=== PATIENT | male | born 1950 | race Caucasian/White ===

== ENCOUNTER 2021-02-16 07:33 | Outpatient (CLI) | payer BC | END 2021-02-16 07:34 | disposition home or self-care (01) | LOC: LAB.N 07:33 | PROVIDERS: ATTEND Internal Medicine | DX: Z53.9 Procedure and treatment not carried out, unspecified reason (principal) ==

== ENCOUNTER 2021-03-22 03:00 | Outpatient (CLI) | payer BC ==
[2021-03-22 18:04] LABS: BILIRUBIN,URINE NEGATIVE (NEGATIVE); GLUCOSE, URINE (UA) NEGATIVE (NEGATIVE); KETONES,URINE (UA) TRACE mg/dL (NEGATIVE); LEUKOCYTE ESTERASE, URINE NEGATIVE (NEGATIVE); NITRITE,URINE NEGATIVE (NEGATIVE); OCCULT BLOOD,URINE NEGATIVE (NEGATIVE); PROTEIN,URINE NEGATIVE (NEGATIVE); UROBILINOGEN,URINE 0.2 (NORMAL) E.U./dL (NORMAL)
[2021-03-22 19:19] LABS: BACTERIA,URINE None Seen /HPF (None Seen); CLARITY,URINE CLEAR (CLEAR); MUCUS,URINE Moderate Strands; RBC,URINE None Seen /HPF (0-5); SQUAMOUS EPITHELIAL CELL,UR RARE Squamous (<= Few); WBC,URINE 0-3 /HPF (0-3)
[2021-03-25 08:56] LABS: IMMUNOGLOBULIN A 312 mg/dL (70-320); IMMUNOGLOBULIN G 964 mg/dL (600-1540); IMMUNOGLOBULIN M 221 mg/dL (50-300)
[2021-03-25 13:41] LABS: PATHOLOGIST SLIDE COMMENTS SEE SEPARATE REPORT
[2021-03-25 15:31] LABS: ALBUMIN 4.5 g/dL (3.8-4.8); ALPHA 1 GLOBULIN 0.3 g/dL (0.2-0.3); ALPHA 2 GLOBULIN 0.7 g/dL (0.5-0.9); BETA 1 GLOBULIN 0.5 g/dL (0.4-0.6); BETA 2 GLOBULIN 0.3 g/dL (0.2-0.5)
== END 2021-03-22 03:01 | disposition home or self-care (01) ==
LOC: LAB.N 03:00
PROVIDERS: ATTEND Internal Medicine
DX: D75.1 Secondary polycythemia (principal); E88.09 Other disorders of plasma-protein metabolism, not elsewhere classified
CPT/HCPCS: 36415; 81001; 81599; 82668; 82784; 84155; 84165; 85025; 86335; 87086

== ENCOUNTER 2021-06-12 14:37 | Outpatient (CLI) | payer BC ==
[2021-06-12 17:36] LABS: BASOPHILS % (AUTO) 0.4 %; EOSINOPHILS # (AUTO) 0.2 10^3/uL (0.0-0.7); EOSINOPHILS % (AUTO) 1.4 %; HCT - HEMATOCRIT 48.9 % (42.0-52.0); HGB - HEMOGLOBIN 16.2 g/dL (14.0-18.0); LYMPHOCYTES # (AUTO) 3.4 10^3/uL (1.5-3.5); LYMPHOCYTES % (AUTO) 31.1 %; MEAN CORPUSCULAR HEMOGLOBIN 30.6 pg (27.0-31.0); MEAN CORPUSCULAR HGB CONC 33.1 g/dL (32.0-36.0); MEAN CORPUSCULAR VOLUME 92.3 fL (80.0-94.0); MEAN PLATELET VOLUME 10.9 fL (7.4-11.4); MONOCYTES # (AUTO) 0.7 10^3/uL (0.0-1.0); MONOCYTES % (AUTO) 6.8 %; NEUTROPHILS # (AUTO) 6.5 10^3/uL (1.5-6.6); NEUTROPHILS % (AUTO) 59.9 %; PLT - PLATELET COUNT 225 10^3/uL (130-450); RED CELL DISTRIBUTION WIDTH 12.3 % (12.0-15.0); WHITE BLOOD COUNT 10.9 x10^3/uL (4.8-10.8)
[2021-06-12 22:15] LABS: ESTIMATED AVERAGE GLUCOSE 157 mg/dL (70-100); HEMOGLOBIN A1c% 7.1 % (4.27-6.07)
== END 2021-06-12 14:38 | disposition home or self-care (01) ==
LOC: LAB.N 14:37
PROVIDERS: ATTEND Internal Medicine
DX: E11.9 Type 2 diabetes mellitus without complications (principal)
CPT/HCPCS: 36415; 83036; 85025

== ENCOUNTER 2022-04-30 08:00 | Outpatient (CLI) | payer BC ==
[2022-04-30 18:36] LABS: BASOPHILS % (AUTO) 0.1 %; EOSINOPHILS % (AUTO) 0.1 %; HCT - HEMATOCRIT 49.5 % (42.0-52.0); HGB - HEMOGLOBIN 16.7 g/dL (14.0-18.0); LYMPHOCYTES # (AUTO) 2.5 10^3/uL (1.5-3.5); LYMPHOCYTES % (AUTO) 16.3 %; MEAN CORPUSCULAR HEMOGLOBIN 30.3 pg (27.0-31.0); MEAN CORPUSCULAR HGB CONC 33.7 g/dL (32.0-36.0); MEAN CORPUSCULAR VOLUME 89.7 fL (80.0-94.0); MONOCYTES # (AUTO) 0.9 10^3/uL (0.0-1.0); MONOCYTES % (AUTO) 5.6 %; NEUTROPHILS % (AUTO) 77.4 %; PLT - PLATELET COUNT 240 10^3/uL (130-450); RED BLOOD COUNT 5.52 10^6/uL (4.70-6.10); RED CELL DISTRIBUTION WIDTH 12.1 % (12.0-15.0); WHITE BLOOD COUNT 15.4 x10^3/uL (4.8-10.8)
[2022-04-30 18:54] LABS: ALBUMIN 4.1 g/dL (3.2-5.5); ALBUMIN/GLOBULIN RATIO 1.2 (1.0-2.2); CALCIUM 9.8 mg/dL (8.5-10.3); CREATININE 1.2 mg/dL (0.6-1.2); POTASSIUM 4.2 mmol/L (3.5-5.0); TOTAL PROTEIN 7.4 g/dL (6.7-8.2)
== END 2022-04-30 23:59 | disposition home or self-care (01) ==
LOC: LAB.N 08:00
PROVIDERS: ATTEND Nurse Practitioner
DX: R19.01 Right upper quadrant abdominal swelling, mass and lump (principal)
CPT/HCPCS: 36415; 80053; 82150; 83690; 85025

== ENCOUNTER 2022-05-09 09:48 | Outpatient (CLI) | payer MEDICARE ==
[2022-05-09] MEDS ORDERED: DIATRIZOATE MEGLU/DIATRIZO SOD 30 ML BOTTLE PO ONE (10:06)
[2022-05-09] MEDS ORDERED: iohexoL-300 100 ML VIAL ONE (10:06)
--- NOTE | 2022-05-10 09:09 | CT Report ---
PROCEDURE: ABDOMEN/PELVIS W INDICATIONS: RIGHT UPPER QUAD ABD PAIN CONTRAST: 100ml Omnipaque 300 TECHNIQUE: After the administration of oral and intravenous contrast, 5 mm thick sections acquired from the diap hragms to the symphysis. 5 mm thick coronal and sagittal reformats were acquired. For radiation dos e reduction, the following was used: automated exposure control, adjustment of mA and/or kV accordin g to patient size. COMPARISON: None. FINDINGS: Image quality: Excellent. ABDOMEN: Lung bases: Lung bases are clear. Heart size is normal. Small hiatal hernia. Solid organs: Mild hepatic steatosis. Liver and spleen are normal in size and enhancement. Gallblad renetta contains gallstones. Gallbladder is distended. Biliary system is non dilated. Pancreas enhance s normally. No adrenal nodules. Kidneys demonstrate normal size and enhancement, without hydronephrosis. Bilateral renal cysts. For example there is 9.4 x 8.4 cm cyst in the superior pole of the left kidney. A 5.3 x 7.2 cm mildly co mplex cyst is seen in the superior pole of the right kidney. Peritoneum and bowel: Bowel loops demonstrate normal wall thickness and caliber. Diverticulosis wit hout acute diverticulitis. No free fluid or air. Nodes and vessels: No retroperitoneal or mesenteric adenopathy by size criteria. Aorta and inferior vena cava are normal in size. Miscellaneous: No ventral hernias. PELVIS: Genitourinary: Bladder wall thickness is normal. Miscellaneous: No inguinal hernias or adenopathy. Bones: No suspicious bony lesions. No vertebral body compression fractures. Moderate degenerative changes in the lower thoracic and lumbar spine. IMPRESSION: 1. Hydropic call bladder and multiple gallstones. 2. Bilateral renal cysts. There is right superior pole cyst is mildly complex (Bosniak category 2F). Follow-up imaging is recommended in 12 months. 3. Hepatic steatosis. 4. Diverticulosis without acute diverticulitis Reviewed by: Enma Loving MD on 05/10/2022 9:07 AM PST Approved by: Enma Loving MD on 05/10/2022 9:07 AM PST Station ID: [id number]
== END 2022-05-09 09:49 | disposition home or self-care (01) ==
LOC: DI 09:48
PROVIDERS: ATTEND Nurse Practitioner
DX: K80.20 Calculus of gallbladder without cholecystitis without obstruction (principal); K82.1 Hydrops of gallbladder; N28.1 Cyst of kidney, acquired; K57.30 Diverticulosis of large intestine without perforation or abscess without bleeding; K76.0 Fatty (change of) liver, not elsewhere classified
CPT/HCPCS: 74177; Q9963; Q9967

== ENCOUNTER 2023-04-03 16:05 | Outpatient (CLI) | payer MEDICARE ==
--- NOTE | 2023-04-03 17:00 | XRAY Report ---
PROCEDURE: Chest 2 View X-Ray INDICATIONS: HICCUPS TECHNIQUE: 2 views of the chest were acquired. COMPARISON: None. FINDINGS: Surgical changes and devices: None. Lungs and pleura: No pleural effusions or pneumothorax. Lungs are clear. Mediastinum: Mediastinal contours appear normal. Heart size is normal. Bones and chest wall: No suspicious bony lesions. Overlying soft tissues appear unremarkable. IMPRESSION: No acute cardiopulmonary process. Reviewed by: Chayo Dillon MD on 04/03/2023 4:59 PM PDT Approved by: Chayo Dillon MD on 04/03/2023 4:59 PM PDT Station ID: [id number]
== END 2023-04-03 16:06 | disposition home or self-care (01) ==
LOC: DI 16:05
PROVIDERS: ATTEND Family Medicine
DX: R06.6 Hiccough (principal)

== ENCOUNTER 2023-04-25 08:18 | Outpatient (CLI) | payer MEDICARE ==
--- NOTE | 2023-04-25 10:59 | CT Report ---
PROCEDURE: CHEST WO INDICATIONS: Chronic hiccups. TECHNIQUE: Noncontrast 1mm axial images were acquired from the pulmonary apices to the posterior costophrenic an gles. Axial 5 mm soft tissue kernel reconstructions were performed as well as 8 mm axial MIP and cor onal and sagittal 5 mm reformations. For radiation dose reduction, the following was used: automate d exposure control, adjustment of mA and/or kV according to patient size. COMPARISON: Radiograph 04/03/2023, CT 05/09/2022 FINDINGS: Image quality: Excellent. Lungs and pleura: No consolidation. No pleural effusions. No pneumothorax. No suspicious pulmonary n odules which require follow up. Pleural parenchymal scarring in the right upper lobe. Associated nod ularity along the medial margin of this measuring 1.5 x 0.8 cm (series 3, image 51). Moderate centril obular emphysema. Normal diaphragm. Mediastinum: Heart size is normal. No pericardial effusion. No large vessel abnormality. No mediastin al adenopathy by size criteria. Small hiatal hernia. Chest wall and lower neck: 1.5 cm thyroid nodule. No axillary or supraclavicular adenopathy by size. Bones: No aggressive osseous abnormality. Upper Abdomen: Simple appearing renal and hepatic cysts, with fluid attenuation. IMPRESSION: No diaphragm abnormality. Right upper lobe scar with mild associated nodularity measuring 1.5 x 0.8 cm. While this probably rep resents a pleural parenchymal band, recommend low-dose chest CT in 6 months to ensure no interval jose wth of the nodularity. 1.5 cm right thyroid nodule. Recommend thyroid ultrasound per ACR consensus conference. Reviewed by: Robi Putnam on 04/25/2023 10:57 AM [facility] Approved by: Robi Putnam on 04/25/2023 10:57 AM [facility] Station ID: [id number]
== END 2023-04-25 08:19 | disposition home or self-care (01) ==
LOC: DI 08:18
PROVIDERS: ATTEND Family Medicine
DX: R91.8 Other nonspecific abnormal finding of lung field (principal); J43.2 Centrilobular emphysema; E04.1 Nontoxic single thyroid nodule; R06.6 Hiccough

== ENCOUNTER 2023-07-20 17:36 | Outpatient (CLI) | payer MEDICARE ==
[2023-07-20 18:12] LABS: HGB - HEMOGLOBIN 15.4 g/dL (14.0-18.0)
[2023-07-20 18:19] LABS: CALCIUM 9.9 mg/dL (8.5-10.3); CREATININE 1.2 mg/dL (0.6-1.3); CREATININE,URINE 157.2 mg/dL; MICROALBUM/CREATININE RATIO,UR 9.5 ug/mg (<30.0); MICROALBUMIN,URINE 1.5 mg/dL; POTASSIUM 4.9 mmol/L (3.5-4.5); PROTEIN/CREATININE RATIO,URINE 0.1 (<=0.2)
== END 2023-07-20 17:37 | disposition home or self-care (01) ==
LOC: LAB 17:36
PROVIDERS: ATTEND Internal Medicine Nephrology
DX: I10 Essential (primary) hypertension (principal); E11.9 Type 2 diabetes mellitus without complications; Q61.9 Cystic kidney disease, unspecified
CPT/HCPCS: 36415; 80048; 82043; 82570; 84156; 85014; 85018

== ENCOUNTER 2023-07-26 17:09 | Outpatient (CLI) | payer MEDICARE ==
[2023-07-26] MEDS ORDERED: iohexoL-300 100 ML VIAL ONE (17:12)
[2023-07-26] MEDS: iohexoL-300 100 ML VIAL IVP ONE (19:45)
--- NOTE | 2023-07-27 14:21 | CT Report ---
PROCEDURE: Abdomen W/WO INDICATIONS: RENAL CYST CONTRAST: 140mL Omni 300 TECHNIQUE: After the administration of intravenous contrast, 5 mm thick sections acquired from the diaphragm to the symphysis. 5 mm coronal and sagittal reformats were acquired. For radiation dose reduction, the following was used: automated exposure control, adjustment of mA and/or kV according to patient siz e. COMPARISON: CT 05/09/2022 FINDINGS: Image quality: Excellent. Genitourinary: Bilateral renal cystic lesions. No enhancing septations or nodularity. Focal, mildly thickened wall along the posterior margin of the right renal cyst (series 20, image 25). OTHER: Lung bases and heart: Small hiatal hernia. Liver: No solid mass. Gallbladder and biliary tree: Surgically absent. No biliary dilation, accounting for post-cholecystec flora state. Spleen: No splenomegaly. Pancreas: No pancreatic ductal dilation. Adrenals: No adrenal nodule. Bowel and peritoneum: No bowel distension. No pathologic free fluid. Diverticulosis without evidence of diverticulitis. Lymph nodes: No central or retroperitoneal adenopathy. Vessels: No infrarenal aortic aneurysm. Bones: No aggressive osseous abnormality. Other: No significant ventral hernia. IMPRESSION: Stable mildly complex right renal cystic lesion, Bosniak 2F. Continued yearly surveillance for a tota l of 5 years is recommended according to the proposed revised Bosniak criteria. Reviewed by: Robi Putnam MD on 07/27/2023 2:19 PM PST Approved by: Robi Putnam MD on 07/27/2023 2:19 PM PST Station ID: [id number]
== END 2023-07-26 17:10 | disposition home or self-care (01) ==
LOC: DI 17:09
PROVIDERS: ATTEND Internal Medicine Nephrology
DX: I10 Essential (primary) hypertension (principal); E11.9 Type 2 diabetes mellitus without complications; Q61.9 Cystic kidney disease, unspecified
CPT/HCPCS: 74170; Q9967